=== PATIENT | male | born 1985 | race Two or more races ===

== ENCOUNTER 2024-04-13 08:23 | Emergency (ER) | payer MEDICAID ==
[~2024-04-13] VITALS: Ht 185.4 cm; Wt 93.0 kg
[2024-04-13] MEDS ORDERED: KETOROLAC TROMETHAMINE 15 MG/ML VIAL ONE (09:00)
[2024-04-13] MEDS: ONDANSETRON HCL/PF 4 MG/2 ML VIAL IVP ONE (09:00)
[2024-04-13] MEDS ORDERED: ONDANSETRON HCL/PF 4 MG/2 ML VIAL ONE (09:00)
[2024-04-13] MEDS: KETOROLAC TROMETHAMINE 15 MG/ML VIAL IV ONE (09:05)
[2024-04-13] MEDS: IV NS 0.9% 1,000 ML BAG IV ONE (09:05)
[2024-04-13 09:12] LABS: BASOPHILS # (AUTO) 0.1 K/uL (0.0-0.2); EOSINOPHILS # (AUTO) 0.1 K/uL (0.0-0.7); EOSINOPHILS % (AUTO) 1.3 % (0.0-6.0); HEMATOCRIT 42 % (39-51); HEMOGLOBIN 14.2 g/dL (13.5-17.5); LYMPHOCYTES # (AUTO) 1.1 K/uL (0.8-4.8); LYMPHOCYTES % (AUTO) 17.7 % (20.0-44.0); MEAN CORPUSCULAR HEMOGLOBIN 31 PG (26.0-33.0); MEAN CORPUSCULAR HGB CONC 34 g/dl (31.0-36.0); MEAN CORPUSCULAR VOLUME 90 fL (80-96); MONOCYTES # (AUTO) 0.7 K/uL (0.1-1.30); MONOCYTES % (AUTO) 11.8 % (2.0-12.0); NEUTROPHILS # (AUTO) 4.4 K/uL (1.8-8.9); NEUTROPHILS % (AUTO) 68.2 % (43.0-81.0); PLATELET COUNT (AUTO) 270 K/uL (150-450); RED CELL DISTRIBUTION WIDTH 13.3 % (11.5-15.0); WHITE BLOOD COUNT (AUTO) 6.4 K/uL (4.3-11.0)
[2024-04-13 09:20] LABS: CREATININE 0.8 mg/dL (0.6-1.3); POTASSIUM 4.2 mmol/L (3.5-5.1)
[2024-04-13 09:26] LABS: ALBUMIN 3.9 g/dL (3.4-5.0); BILIRUBIN,DIRECT 0.1 mg/dL (0.0-0.2); BILIRUBIN,TOTAL 0.4 mg/dL (0.2-1.0); TOTAL PROTEIN, SERUM 7.8 g/dL (6.4-8.2)
[2024-04-13] MEDS ORDERED: CT SWABBABLE VALVE TRANS SET 1 EA INFUS.SET MC ONE (10:04)
[2024-04-13] MEDS ORDERED: IOHEXOL-300 100 ML VIAL IV ONE (10:04)
[2024-04-13] MEDS ORDERED: IV NS 0.9% 250 ML IV ONE (10:04)
[2024-04-13] MEDS ORDERED: DICY10CA37 PO (10:38)
[2024-04-13 10:51] VITALS: BP 142/93; TEMP 98.1; O2SAT 99
== END 2024-04-13 10:51 | disposition home or self-care (01) ==
LOC: ER 08:23
DX: R10.11 Right upper quadrant pain (principal); Z60.2 Problems related to living alone; Z79.899 Other long term (current) drug therapy
CPT/HCPCS: 99285; 74177; 96374; 76705; 96361; 96375; 85025; 80048; 83690; 80076; 36415; J2405; J7030; J7050; Q9967; J1885